=== PATIENT | male | born 1980 | race Caucasian/White ===

== ENCOUNTER 2018-01-01 00:19 | Emergency (ER) | payer BC, SELFPAY ==
[2018-01-01 00:22] VITALS: BP 154/93; PULSE 81; RESP 16; TEMP 36.4; O2SAT 98; BMI 40.3
--- NOTE | 2018-01-01 00:53 | ED.VIS.GEN ---
History of Present Illness Chief Complaint: Other, Pain/Inj Informant: Patient Onset: Days - 2 Context: Sudden Onset - awoke w/ sx Timing: Continuous Quality: sore Location: bilat neck, into both upper trapezius muscles and pain/tingling left arm Current Severity: Moderate Maximum Severity: Severe Worsened by: turning head Relieved by: remaining still, ice, ibuprofen Associated Symptoms: grad onset headache, mild nausea Narrative: Patient does not recall heavy lifting or injury the day before the onset of symptoms. He states the day it started, he was in a lot of discomfort and had a lot of trouble turning his head, but after icing and taking ibuprofen that has loosened up and today has not been so bad. No fevers or systemic symptoms. He did have some discomfort with some mild tingling in his left upper arm, he states that is there now but relatively mild. No weakness in his arm. He has a history of low back problems with surgery for sciatica/disc problems. - Past Medical History (1) History of back surgery Status: Chronic Past Medical History - Allergies and Home Meds Allergies/Adverse Reactions: Allergies nabumetone [From Relafen] Allergy (Verified 01/01/18 00:20) [facility] Physician: Josef Booth DO [Primary Care Provider] - Smoking Status: Never smoker Review of Systems All systems negative except as indicated General: Denies: Chills, Fever Eyes: Denies: Visual changes - bilaterally, Diplopia Cardiovascular: Denies: Chest pain, Palpitations Gastrointestinal: Reports: Nausea Musculoskeletal: Reports: Neck pain, Extremity Pain. Denies: Swelling Skin: Denies: Rash Neurological: Reports: Headache, Parasthesia. Denies: Weakness Physical Exam Vital Signs/Narrative: Vital Signs Temp Pulse Resp BP Pulse Ox 01/01/18 00:22 97.5 F L 81 16 154/93 H 98 General: Well nourished, Well developed Head: Normocephalic, Atraumatic Neck: Supple, No lymphadenopathy, - - tender mildly upper bilat cervical musculature and bilat upper trapezius muscles toward shoulders Skin: Normal color, No rash Neurological: Alert, Oriented x3, Cranial nerves II-XII grossly intact, Normal Strength, Normal Sensation, Normal DTR, Normal Gait Psychological: Normal affect Diagnostic/Tx/Re-eval - Medical Decision Making Negative Kernig and Brudzinski's. Consistent with muscular pain, I suspect that the headache that started later as a result of the muscular discomfort in his neck. I do not think he has meningitis. Furthermore he states that it feels like there is a knot in his left trapezius, and Biofreeze was helping that feel better temporarily. I distracted his cervical spine but it did not help his left upper extremity discomfort, however that could be a C5 radiculopathy. NSAIDs are recommended for now. He is fine with that, he states that he just really wanted to make sure this was not anything dangerous. He was given a dose of anti-inflammatory muscle relaxer here and advised to follow-up with his doctor or chiropractor for persistent symptoms. ED Disposition - Plan for ED Patient: Disposition: Home or Assisted Living Chief Complaint: Other, Pain/Inj Diagnosis: Cervical muscle pain Instructions: ED Sprain Strain Neck, ED Cervical Radiculopathy Prescriptions: Naproxen [Naprosyn] 500 mg PO BID PRN #20 tab Referrals: Josef Booth DO [Primary Care Provider] - 1-2 Weeks
[2018-01-01] MEDS: Ketorolac 60 MG/2 ML Vial IM (01:13)
[2018-01-01] MEDS: Orphenadrine 60 MG/2 ML Ampul IM (01:14)
[2018-01-01 01:38] VITALS: RESP 16
== END 2018-01-01 01:38 | disposition home or self-care (01) ==
LOC: ED 01:09
PROVIDERS: Emergency Provider Emergency Medicine; Family Provider Family Medicine; PCP Family Medicine
DX: M54.2 Cervicalgia (principal); Z79.899 Other long term (current) drug therapy
CPT/HCPCS: 96372; 99282

== ENCOUNTER 2018-12-31 07:10 | Emergency (ER) | payer OTHER, SELFPAY ==
[2018-12-31 07:11] VITALS: BP 155/94; PULSE 102; RESP 17; TEMP 36.2; O2SAT 96; BMI 41.1
--- NOTE | 2018-12-31 07:46 | ED.DCSUM_ITS ---
- ER Visit Summary Date of Service: 12/31/18 Chief Complaint: [Laceration left hand] History of Present Illness: The patient is a 38 M [to the emergency department after sustaining a laceration this morning while at work. Patient states that he was using a box cutting razor when he accidentally stabbed himself in the left hand between the thumb and index finger. Patient is right-hand dominant. Patient is unsure of his last tetanus shot.] Physical Examination: [Left hand-patient has a 2.5 cm laceration in the webspace between the thumb and index finger. Patient has normal range of motion in flexion extension of the index finger and thumb as well as all digits. Patient has normal sensation in all digits. Neurovascularly intact.] Test Results: [None indicated] Emergency Department Course and Treatment: [Laceration repair-wound sterilely draped and prepped. Cleansed with Shur-Clens and irrigated with copious saline. Wound anesthetized locally with 1% lidocaine total of 4 cc. The wound began to bleed significantly as patient did have a small arterial hemorrhage noted which was tied off with 5-0 Vicryl one single interrupted suture. Using 5-0 nylon a total of 4 single interrupted sutures placed in the skin with good wound edge approximation. Patient tolerated procedure well. There was good hemostasis.] Treatment Plan: [Follow-up with corporate care or primary care physician within the next 10 days for suture removal. Advised to return if worsening pain, redness, swelling, purulent drainage, fever, or conditions worsen anyway.] Disposition: [Discharged home stable condition.] Impression: [Laceration left hand 2.5 cm-simple repair] This note was generated with [employer] dictation software. It may contain incorrect words, spelling, and punctuation that were not noted in review of the chart prior to signing ED Disposition - Plan for ED Patient: Referrals: Josef Booth DO [Primary Care Provider] -
--- NOTE | 2018-12-31 07:49 | ED.DEP ---
ED Disposition - Plan for ED Patient: Instructions: LACERATION, Hand Referrals: ,[facility] [GROUP OF PHYSICIANS] - 10 Day for suture removal Josef Booth DO [Primary Care Provider] - 10 Day for suture removal
[2018-12-31] MEDS: Diphth,Pertuss(Acell),Tet Vac 0.5 ML Vial IM (08:33)
== END 2018-12-31 08:58 | disposition home or self-care (01) ==
PROVIDERS: Emergency Provider Emergency Medicine; Family Provider Family Medicine; PCP Family Medicine
DX: S61.412A Laceration without foreign body of left hand, initial encounter (principal); M10.9 Gout, unspecified; I10 Essential (primary) hypertension; Z79.1 Long term (current) use of non-steroidal anti-inflammatories (NSAID); Z79.899 Other long term (current) drug therapy; W26.0XXA Contact with knife, initial encounter; Y93.89 Activity, other specified; Y92.89 Other specified places as the place of occurrence of the external cause; Y99.0 Civilian activity done for income or pay
CPT/HCPCS: 12001; 90471; 90715; 99283